=== PATIENT | male | born 1975 | race Caucasian/White ===

== ENCOUNTER 2021-09-13 13:46 | Emergency (ER) | payer BC ==
[2021-09-13 13:55] VITALS: BP 124/76; PULSE 104; TEMP 98.3; BMI 32.8
[2021-09-13] MEDS ORDERED: ACETAMINOPHEN 1000 MG/100 ML BAG IVPB ONE (14:20)
[2021-09-13] MEDS ORDERED: SODIUM CHLORIDE 1,000 ML IV ONE (14:20)
[2021-09-13] MEDS ORDERED: ACETAMINOPHEN INJECTION 100 ML IVPB ONE (16:09)
[2021-09-13 17:07] LABS: PH,URINE 6.5 (5.0-8.0); URINE APPEARANCE CLEAR; URINE BILIRUBIN NEGATIVE (NEGATIVE); URINE COLOR YELLOW; URINE GLUCOSE (UA) NEGATIVE (NEGATIVE); URINE KETONE TRACE (NEGATIVE); URINE LEUK ESTERASE NEGATIVE (NEGATIVE); URINE NITRITE NEGATIVE (NEGATIVE); URINE PROTEIN TRACE (NEGATIVE)
[2021-09-13 17:16] LABS: BASO % 0.3 % (0-2.0); EOS % 0.6 % (0-4.5); HEMATOCRIT 42.3 % (35.4-49); HEMOGLOBIN 14.4 GM/dL (11.7-16.9); LYMPH % 19.2 % (8-40); MCH 29.5 pg (25.7-33.7); MCHC 33.9 g/dl (32.0-35.9); MEAN CELL VOLUME 86.9 fl (80-96); MEAN PLT VOLUME 7.3 fl (7.5-11.1); MONO % 13.3 % (3.8-10.2); NEUT % 66.6 % (42.8-82.8); PLATELET COUNT 272 10^3/uL (134-434); RBC 4.86 M/mm3 (4.00-5.60); RDW 12.9 % (11.9-15.9); WHITE BLOOD COUNT 8.9 K/mm3 (4.0-10.0)
[2021-09-13 17:43] LABS: CALCIUM 8.7 mg/dL (8.5-10.1)
[2021-09-13 17:44] LABS: ALBUMIN 3.5 g/dl (3.4-5.0); BLOOD UREA NITROGEN 13.8 mg/dL (7-18)
[2021-09-13 17:48] LABS: BILIRUBIN,TOTAL 0.8 mg/dL (0.2-1); TOT PROT 6.7 g/dl (6.4-8.2)
[2021-09-13] MEDS ORDERED: metroNIDAZOLE 500 MG TABLET PO ONE (19:44)
[2021-09-13] MEDS ORDERED: CIPROFLOXACIN 500 MG TABLET (RESTRICTED TO ID) PO ONE (19:44)
[2021-09-13] MEDS ORDERED: metroNIDAZOLE 250 MG TABLET ONE (20:20)
== END 2021-09-13 21:39 | disposition home or self-care (01) ==
LOC: JER 13:46
PROC: 3E0333Z Introduction of Anti-inflammatory into Peripheral Vein, Percutaneous Approach (ICD-10-PCS; principal; 2021-09-13)
PROC: 3E0337Z Introduction of Electrolytic and Water Balance Substance into Peripheral Vein, Percutaneous Approach (ICD-10-PCS; 2021-09-13)
DX: R10.32 Left lower quadrant pain (principal)
CPT/HCPCS: 36415; 74177-TC; 80053; 81003; 83690; 85025; 99285-25; Q9967

== ENCOUNTER 2022-11-28 14:33 | Emergency (ER) | payer BC ==
[2022-11-28 14:46] VITALS: BP 128/81; PULSE 100; RESP 24; TEMP 97.9; BMI 32.3
[2022-11-28] MEDS ORDERED: predniSONE 20 MG TABLET (UD) PO ONE (14:57)
[2022-11-28] MEDS: ALBUTEROL SO4 2.5/IPRATROPIUM 0.5 INH SOL 3 ML VIAL.NEB. NEB SCH (14:59)
[2022-11-28] MEDS ORDERED: predniSONE 20 MG TABLET (UD) ONE (15:00)
== END 2022-11-28 16:04 | disposition home or self-care (01) ==
LOC: JER 14:33 → JERFT 14:33
PROC: 3E0F7GC Introduction of Other Therapeutic Substance into Respiratory Tract, Via Natural or Artificial Opening (ICD-10-PCS; principal; 2022-11-28)
DX: R06.02 Shortness of breath (principal); R05.9 Cough, unspecified; J02.9 Acute pharyngitis, unspecified; J45.901 Unspecified asthma with (acute) exacerbation
CPT/HCPCS: 71046-TC-FY; 99283-25